=== PATIENT | female | born 1995 | race African-American/Black ===

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

== ENCOUNTER 2017-01-05 18:28 | Emergency (ER) | payer OTHER ==
[~2017-01-05] VITALS: Ht 170.2 cm; Wt 61.8 kg
[~2017-01-05 18:28] MED LIST: METR1GEL7 PV
[2017-01-05] MEDS ORDERED: ACETAMINOPHEN TAB 650MG DOSE (2X325MG) PO ONE (20:30)
[2017-01-05] MEDS ORDERED: FLAG500T PO (22:13)
[2017-01-05] MEDS ORDERED: MACR100C43 PO (22:13)
[2017-01-05 22:18] VITALS: BP 119/76
[2017-01-05] MEDS ORDERED: metroNIDAZOLE (FLAGYL) 500 MG TAB PO ONE (22:30)
[2017-01-05] MEDS ORDERED: NITROFURANTOIN (MACROBID) 100 MG CAP PO ONE (22:30)
== END 2017-01-05 22:30 | disposition home or self-care (01) ==
LOC: M ED 18:28
DX: O23.41 Unspecified infection of urinary tract in pregnancy, first trimester (principal); O23.591 Infection of other part of genital tract in pregnancy, first trimester; Z3A.01 Less than 8 weeks gestation of pregnancy